=== PATIENT | male | born 1990 | race Caucasian/White ===

== ENCOUNTER 2016-09-14 11:41 | Emergency (ER) | payer BC, MEDICAID, OTHER ==
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
[2016-09-14 12:19] VITALS: BP 128/71
== END 2016-09-14 12:20 | disposition home or self-care (01) ==
LOC: ER 11:41
DX: I80.8 Phlebitis and thrombophlebitis of other sites (principal); Z72.0 Tobacco use

== ENCOUNTER 2017-01-02 00:40 | Emergency (ER) | payer MEDICAID ==
[2017-01-02] MEDS ORDERED: MAG HYDROX/ALUMINUM HYD/SIMETH 30 ML UDC PO ONE (01:15)
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
[2017-01-02 02:11] VITALS: BP 139/74
== END 2017-01-02 02:01 | disposition home or self-care (01) ==
LOC: ER 00:40
PROC: 3E1CX8Z Irrigation of Eye using Irrigating Substance (ICD-10-PCS; principal; 2017-01-02)
DX: T59.3X4A Toxic effect of lacrimogenic gas, undetermined, initial encounter (principal); Y92.511 Restaurant or cafe as the place of occurrence of the external cause